=== PATIENT | male | born 1935 | race Caucasian/White ===

== ENCOUNTER 2019-03-14 12:13 | Inpatient (IN) | payer OTHER ==
[~2019-03-14] VITALS: Ht 167.6 cm; Wt 65.8 kg
[2019-03-14] MEDS ORDERED: SEROQUEL25 MG (12:47)
[2019-03-14] MEDS ORDERED: ALTACE5 MG (12:47)
[2019-03-14] MEDS ORDERED: NUPLAZID34 MG (12:47)
[2019-03-14] MEDS ORDERED: SIMVASTATIN40 MG PO (12:48)
[2019-03-14] MEDS ORDERED: AMLODIPINE BESYL5 MG (12:48)
[2019-03-14] MEDS ORDERED: LODOSYN25 MG (12:48)
[2019-03-14] MEDS ORDERED: GLYCOPYRROLATE1 MG (12:48)
[2019-03-14] MEDS ORDERED: ASPIR 8181 MG (12:48)
[2019-03-14] MEDS ORDERED: COMBIGAN EYE DRO5 ML (12:48)
[2019-03-14] MEDS ORDERED: SIMBRINZA 1%-0.28 ML (12:49)
[2019-04-17] MEDS ORDERED: LEVALBUTER1.25 MG/3 IH (12:37)
[2019-04-17] MEDS ORDERED: AMLODIPINE BESY10 MG PO (12:38)
[2019-04-17] MEDS ORDERED: FERROUS SU220 MG/5 M PO (12:38)
[2019-04-17] MEDS ORDERED: SIMVASTATIN40 MG PO (12:39)
[2019-04-17] MEDS ORDERED: ASA-EC81 MG PO (12:40)
[2019-04-17] MEDS ORDERED: CARBIDOPA-LEVO1 EA11 NGT (12:40)
[2019-04-17] MEDS ORDERED: SEROQUEL25 MG PO (12:42)
[2019-04-17] MEDS ORDERED: SEROQUEL50 MG PO (12:42)
[2019-04-17] MEDS ORDERED: RAMIPRIL10 MG PO (12:43)
[2019-04-17] MEDS ORDERED: PRE PROTEIN 2030 ML PO (12:46)
[2019-04-17] MEDS ORDERED: INTESTINEX680 M1 PO (12:47)
[2019-04-17] MEDS ORDERED: ZANTAC150 MG PO (12:47)
[2019-04-17] MEDS ORDERED: RENO CAPS SOFTGE1 MG PO (12:48)
[2019-04-18] MEDS ORDERED: FEROSUL220 MG/51 (21:52)
[2019-04-18] MEDS ORDERED: SIMVASTATIN40 MG (21:53)
[2019-04-18] MEDS ORDERED: CARBIDOPA-LEVO1 EA11 (21:53)
[2019-04-18] MEDS ORDERED: ADULT ASPIRIN81 MG (21:53)
[2019-04-18] MEDS ORDERED: PROTEIN (21:55)
[2019-04-18] MEDS ORDERED: ZANTAC150 M3 (21:56)
[2019-04-18] MEDS ORDERED: LACTOBACILLUS (21:56)
[2019-04-18] MEDS ORDERED: RENO CAPS SOFTGE1 MG (21:57)
== END 2019-04-17 17:50 | disposition home or self-care (01) | DRG 194 ==
LOC: ER 12:13 → MEDJ 16:57
PROVIDERS: ADMIT Internal Medicine
PROC: BW24ZZZ Computerized Tomography (CT Scan) of Chest and Abdomen (ICD-10-PCS; 2019-03-14)
PROC: B246ZZZ Ultrasonography of Right and Left Heart (ICD-10-PCS; 2019-03-14)
PROC: 3E0F7GC Introduction of Other Therapeutic Substance into Respiratory Tract, Via Natural or Artificial Opening (ICD-10-PCS; 2019-03-14)
PROC: 02HV33Z Insertion of Infusion Device into Superior Vena Cava, Percutaneous Approach (ICD-10-PCS; 2019-03-16)
PROC: 4A12X4Z Monitoring of Cardiac Electrical Activity, External Approach (ICD-10-PCS; 2019-03-17)
PROC: 02HV33Z Insertion of Infusion Device into Superior Vena Cava, Percutaneous Approach (ICD-10-PCS; 2019-03-23)
PROC: BW24ZZZ Computerized Tomography (CT Scan) of Chest and Abdomen (ICD-10-PCS; 2019-04-01)
PROC: 0W9B3ZZ Drainage of Left Pleural Cavity, Percutaneous Approach (ICD-10-PCS; principal; 2019-04-02)
PROC: 0DH63UZ Insertion of Feeding Device into Stomach, Percutaneous Approach (ICD-10-PCS; 2019-04-09)
PROC: 0W9B3ZZ Drainage of Left Pleural Cavity, Percutaneous Approach (ICD-10-PCS; 2019-04-16)
DX: J16.8 Pneumonia due to other specified infectious organisms (principal); J90 Pleural effusion, not elsewhere classified; E46 Unspecified protein-calorie malnutrition; J98.11 Atelectasis; B37.89 Other sites of candidiasis; J11.1 Influenza due to unidentified influenza virus with other respiratory manifestations; R09.02 Hypoxemia; G20 Parkinson's disease; F02.80 Dementia in other diseases classified elsewhere, unspecified severity, without behavioral disturbance, psychotic disturbance, mood disturbance, and anxiety; R13.19 Other dysphagia; D64.89 Other specified anemias; I10 Essential (primary) hypertension; I35.0 Nonrheumatic aortic (valve) stenosis; E78.00 Pure hypercholesterolemia, unspecified; D72.828 Other elevated white blood cell count; C61 Malignant neoplasm of prostate; N40.0 Benign prostatic hyperplasia without lower urinary tract symptoms; K59.09 Other constipation; R49.0 Dysphonia; Z74.01 Bed confinement status

== ENCOUNTER 2019-04-18 21:04 | Inpatient (IN) | payer OTHER ==
[~2019-04-18] VITALS: Ht 172.7 cm; Wt 63.5 kg
[~2019-04-18 21:04] MED LIST: ALTACE5 MG; AMLODIPINE BESY10 MG PO; AMLODIPINE BESYL5 MG; ASA-EC81 MG PO; ASPIR 8181 MG; CARBIDOPA-LEVO1 EA11 NGT; COMBIGAN EYE DRO5 ML; FERROUS SU220 MG/5 M PO; GLYCOPYRROLATE1 MG; INTESTINEX680 M1 PO; LEVALBUTER1.25 MG/3 IH; LODOSYN25 MG; NUPLAZID34 MG; PRE PROTEIN 2030 ML PO; RAMIPRIL10 MG PO; RENO CAPS SOFTGE1 MG PO; SEROQUEL25 MG; SEROQUEL25 MG PO; SEROQUEL50 MG PO; SIMBRINZA 1%-0.28 ML; SIMVASTATIN40 MG PO; ZANTAC150 MG PO
[2019-04-18] MEDS ORDERED: FEROSUL220 MG/51 (21:52)
[2019-04-18] MEDS ORDERED: CARBIDOPA-LEVO1 EA11 (21:53)
[2019-04-18] MEDS ORDERED: ADULT ASPIRIN81 MG (21:53)
[2019-04-18] MEDS ORDERED: SIMVASTATIN40 MG (21:53)
[2019-04-18] MEDS ORDERED: PROTEIN (21:55)
[2019-04-18] MEDS ORDERED: ZANTAC150 M3 (21:56)
[2019-04-18] MEDS ORDERED: LACTOBACILLUS (21:56)
[2019-04-18] MEDS ORDERED: RENO CAPS SOFTGE1 MG (21:57)
[2019-04-23] MEDS ORDERED: FLUCONAZOLE100 MG PO (11:16)
[2019-04-23] MEDS ORDERED: INTESTINEX680 M1 PO (11:16)
[2019-04-23] MEDS ORDERED: MERREM500 MG IV (11:20)
== END 2019-04-23 18:27 | DRG 188 ==
LOC: ER 21:04 → MEDJ 04-19 12:01 → SURH 04-19 12:01 → MEDJ 04-19 20:20
PROVIDERS: ADMIT Internal Medicine
PROC: 4A033R1 Measurement of Arterial Saturation, Peripheral, Percutaneous Approach (ICD-10-PCS; principal; 2019-04-19)
PROC: 3E0F7GC Introduction of Other Therapeutic Substance into Respiratory Tract, Via Natural or Artificial Opening (ICD-10-PCS; 2019-04-19)
PROC: 0T9B70Z Drainage of Bladder with Drainage Device, Via Natural or Artificial Opening (ICD-10-PCS; 2019-04-19)
DX: J90 Pleural effusion, not elsewhere classified (principal); R91.8 Other nonspecific abnormal finding of lung field; G20 Parkinson's disease; F02.80 Dementia in other diseases classified elsewhere, unspecified severity, without behavioral disturbance, psychotic disturbance, mood disturbance, and anxiety; I35.0 Nonrheumatic aortic (valve) stenosis; I10 Essential (primary) hypertension; D72.828 Other elevated white blood cell count; E78.00 Pure hypercholesterolemia, unspecified; R09.02 Hypoxemia; R13.19 Other dysphagia; Z93.1 Gastrostomy status; R31.29 Other microscopic hematuria